=== PATIENT | female | born 1985 | race Caucasian/White ===

== ENCOUNTER 2018-11-09 06:49 | Day surgery (SDC) | payer OTHER ==
[2018-11-09 07:23] VITALS: BMI 37.1
[2018-11-09] MEDS ORDERED: hydrALAZINE 20 MG/ML VIAL SLOW IVP PRN (11:40)
--- NOTE | 2018-11-09 15:44 | PRG ---
DATE OF SERVICE: 11/09/2018 PRIMARY PAPER ROLLER: Libby Angeles CNM CHIEF COMPLAINT: Abdominal pains. HISTORY OF PRESENT ILLNESS: The patient is a 33-year-old, G2, P1 female with an intrauterine at 36 weeks and 3 days, who is reporting to Labor and Delivery after experiencing uterine contractions at home that began earlier this morning and had come as close together as about 5 minutes apart. The patient reports that it dissipated and then became more frequent again, and so, came in for evaluation. The patient denies any previous cervical exam, any previous complications with this . She denies leakage of fluid or vaginal bleeding. She denies any fever, fall, cough, headache, chest pain, shortness of breath, nausea, vomiting, diarrhea, constipation, hip problems, knee problems, muscle weakness, any new rashes, urinary urgency or frequency. PAST MEDICAL HISTORY: Negative. PAST SURGICAL HISTORY: She has had a laparoscopic gastric sleeve. SOCIAL HISTORY: Denies drug, alcohol, or tobacco use. ALLERGIES: NO KNOWN DRUG ALLERGIES. MEDICATIONS: vitamins. ALLERGIES: NO KNOWN DRUG ALLERGIES. OB LABS: Blood type is A positive. Antibody screen is negative. VDRL is nonreactive in the first trimester. Hepatitis B surface antigen nonreactive in the first trimester. HIV nonreactive in the first trimester and in the third trimester. She is rubella immune. Diabetes screen, 94. GBS unavailable. VDRL in the third trimester is nonreactive. REVIEW OF SYSTEMS: Per HPI. PHYSICAL EXAMINATION: VITAL SIGNS: Blood pressure 124/82, heart rate of 88, respiratory rate of 16, saturating 100% on room air, and temperature 98.0. GENERAL: She appears to be in no acute distress. She is alert, oriented, cooperative, and pleasant to interact with. HEAD: Normocephalic, atraumatic. LUNGS: Clear to auscultation bilaterally. HEART: Regular rate and rhythm. ABDOMEN: Gravid and soft, nontender. EXTREMITIES: Nontender, nonedematous. : Cervix is 2 cm dilated, 70% effaced, -1 station per nursing staff. EXTREMITIES: Nontender, nonedematous. DIAGNOSTIC DATA: heart tracing shows for abdominal pain and , shows a baseline in the 140s with moderate long-term variability, positive 15 x 15 accelerations, no decelerations. The tocometer is showing a lot of irritability, but no real consistent contraction pattern. ASSESSMENT AND PLAN: The patient is a 33-year-old, G2, P1 female with an intrauterine at 36 weeks and 3 days, who is presenting to Labor and Delivery with uterine contractions. There is no evidence of active labor at this time. The family has been offered to be discharged to home or to stay and wait for a couple of hours and re-evaluate. Given the irregularity of her contractions, the patient is comfortable going home at this time as [place]. The patient is to follow up with her primary OB as scheduled and has been given labor precautions. Job ID: [id number]
== END 2018-11-09 08:59 | disposition home or self-care (01) ==
LOC: L&D/OP 06:49
PROVIDERS: ATTEND Obstetrics & Gynecology
DX: O47.03 False labor before 37 completed weeks of gestation, third trimester (principal); Z3A.36 36 weeks gestation of pregnancy
CPT/HCPCS: 99282

== ENCOUNTER 2020-09-17 21:37 | Emergency (ER) | payer BC | END 2020-09-18 01:12 | disposition home or self-care (01) | LOC: ERS 21:37 | DX: J18.9 Pneumonia, unspecified organism (principal) | CPT/HCPCS: 99283 ==